=== PATIENT | male | born 1975 | race Caucasian/White ===

== ENCOUNTER 2024-07-18 06:09 | Day surgery (SDC) | payer OTHER, SELFPAY ==
--- OUTSIDE RECORDS SUMMARY | 2024-07-14 03:02 | XMS_ITS | Data Portability ---
Author Organization [place] [facility] Address [address] [place] [address] Assessment No assessment recorded. Plan of Treatment Reminders Order Date Submit Date Provider Last Modified By Organization Details Last Modified Time Details Appointments ESTABLI SHED 10 2024 08:40A M Pepe dominguez MD Not available Not available Not available Lab PSA, serum or plasma 2019 020 [email or web address] Not available 06/25/2020 10:29:06 urinaly sis, dipstic k 2020 021 [email or web address] Not available 05/27/2021 09:25:22 PSA, serum or plasma 2021 022 [email or web address] [facility], [address], [place], [address], 05/26/2022 10:24:36 urinaly sis, dipstic k 2021 022 [email or web address] [facility], [address], [place], [address], 05/26/2022 10:01:41 urinaly sis, dipstic k 2023 024 [email or web address] [facility], [address], [place], [address], 09/28/2023 09:31:48 Referral None recorde d. Procedures None recorde d. Surgeries None recorde d. Imaging None recorde d. Medication Orders Viagra 100 mg tablet [address] [facility], [address] [place] [address], [id number], 09/28/2023 09:18:46 Flomax 0.4 mg capsule [address] [facility], [address] [place] [address], [id number], 09/28/2023 09:18:27 Cialis 5 mg tablet 2019 [facility], [address] [place] [address], [id number], 06/25/2020 10:54:38 [facility] 5 mg tablet 2020 [facility] [address] [place] [address], [id number], 05/27/2021 09:47:41 tadalaf il 10 mg tablet 2021 022 [facility], [address] [place] [address], [id number], 05/26/2022 09:41:50 tamsulo sin 0.4 mg capsule [address] [facility], [address] [place] [address], [id number], 09/28/2023 09:18:27 Cialis 10 mg tablet 2023 024 [facility], [address] [place] [address], [id number], 09/28/2023 09:52:20 Viagra 100 mg tablet 2023 024 [facility], [address] [place], [address], 09/28/2023 09:58:06 Patient TargetsNo targets recorded. Patient Instructions Encounter Date Encounter Id Patient Instructions Last Modified By Organization Details Last Modified Time 06/25/2020 [id number] 1. BPH with slow stream---nocturi a X 1---VOIDING WELL ON FLOMAX---BLADDER SCAN PVR 6 CC today 06/25/20 2. ED---has good libido---sildena matt works well 3. LEFT EPIDIDYMAL CYST---NOT BOTHERED---no pain 4. PSA HX: PSA 1.3 today 06/25/2020 PSA 1.38 04/2019 PSA 0.98 2018 PLAN: 1. Continue flomax 2. Continue sildenafil prn 3. RX Cialis 5 mg daily for ED and BPH---I discussed CIalis daily may work well for both ED and BPH---hold flomax and sildenafil while trying Cialis 4. Pt has handout on Uro[employer] 5. Follow up 1 year for bladder scan PVR and Cysto 6. Check PSA in 2 years [email or web address] Not available 06/25/2020 10:55:00 05/27/2021 [id number] 1. BPH with slow stream---nocturi a X 1---not bothered---Voidi ng well on cialis 5 mg daily Bladder scan PVR 4 cc today 05/27/21 UA neg today 05/27/21 2. ED---has good libido---cialis 5 mg daily works well---good erections 3. LEFT EPIDIDYMAL CYST---NOT BOTHERED---no pain 4. PSA HX: PSA 1.4 today 05/27/2021 PSA 1.3 06/25/2020 PSA 1.38 04/2019 PSA 0.98 2018 PLAN: 1. Continue Cialis 5 mg daily for ED and BPH 2. Follow up 1 year for bladder scan PVR and possible Cysto if BPH sx worsen [email or web address] Not available 05/27/2021 09:47:49 09/28/2023 [id number] 1. BPH with slow stream---nocturi a X 1---not bothered---ciali s 10 mg daily pvr 0cc UA neg today09/28/2023 05/27/21 FROM PRIOR VISIT-- 05/26/22 (Minoo Cordova PA-C) - Sg presents for medication refill. No changes to urination habits. Still with nocturia x1. Pt reports taking tadalafil 20mg daily (shows me bottle which is indeed 20mg dosage). Per Dr Velez last note, was previously prescribed 5mg daily. Sg denies any changes to urination habits or erections; is unsure when or why this dosage changed. He also reports preferring to switch to tamsulosin when he is traveling for work and not sexually active for streches of time. UA today negative; PVR today 69ml. PSA 1.3, stable. 2. ED---has good libido---prn sildenafil 3. LEFT EPIDIDYMAL CYST---NOT BOTHERED---no pain 4. PSA HX: PSA 1.3 05/26/2023 PSA 1.4 today 05/27/2021 PSA 1.3 06/25/2020 PSA 1.38 04/2019 PSA 0.98 2018 PLAN: 1. Continue Cialis 10 mg daily for ED and BPH----can also try sildenbafil 100mg prn ----12 hrs apart 2. Follow up 1 year for bladder scan PVR and possible Cysto if BPH sx worsen 3. psa with physical dtortorelis Not available 09/28/2023 09:46:48 Reason for Referral None Reported. Results Created Date Observation Date Name Description Value Unit Range Abnormal Flag Note LastModifiedBy Organization Detail LastModifiedTime 05/27/2021 urina lysis , dipst ick Bilirubin-St atus Small Not Available [facility] [address], [place], [address], 05/27/2021 09:21:22 05/27/2021 urina lysis , dipst ick Ketones-Stat us 5 Not Available [facility] [address], [place], [address], 05/27/2021 09:21:22 06/25/2020 PSA, serum or plasm a PSA, Total 1.3 ng/ml Not Available [facility] [address], [place], [address], 06/25/2020 10:28:38 05/26/20 22 05/26/2022 PSA, serum or plasm a PSA 1.3ng/ ml 0-4.0 Not Available [facility] [address], [place], [address], 05/26/2022 10:00:46 05/26/2005/26/2022 urina lysis , dipst ick pH-Status 7.0 Not Available [facility] [address], [place], [address], 05/26/2022 10:01:23 09/28/19 24 09/28/2023 urina lysis , dipst ick Color-Status Yellow Not Available [facility] [address], [place], [address], 09/28/2023 09:31:02 09/28/1909/28/2023 urina lysis , dipst ick Clarity-Stat us Clear Not Available [facility] [address], [place], [address], 09/28/2023 09:31:02 09/28/19 24 09/28/2023 urina lysis , dipst ick Sp [place]-Stat us 1.025 Not Available [facility] [address], [place], [address], 09/28/2023 09:31:02 09/28/1909/28/2023 urina lysis , dipst ick Nitrates-Sta tus negati ve Not Available [facility] [address], [place], [address], 09/28/2023 09:31:02 09/28/19 09/28/2023 urina lysis , dipst ick Blood-Status Negati ve Not Available [facility] [address], [place], [address], 09/28/2023 09:31:02 09/28/19 24 09/28/2023 urina lysis , dipst ick Leuko-Status Negati ve Not Available [facility] [address], [place], [address], 09/28/2023 09:31:02 09/28/19 24 09/28/2023 urina lysis , dipst ick Specimen Type Voided Not Available [facility] [address], [place], [address], 09/28/2023 09:31:02 09/28/19 24 09/28/2023 urina lysis , dipst ick Performed by Raghu person RN Not Available [facility] [address], [place], [address], 09/28/2023 09:31:02 06/26/20 20 06/25/2020 bladd er scan (PROC ) No observ ation record ed. BARCODE Not Available 2019 09:35:01 05/29/20 22 05/26/2022 bladd er scan (PROC ) No observ ation record ed. BARCODE Not Available 2021 17:43:00 09/28/19 24 09/28/2023 bladd er scan (PROC ) No observ ation record ed. BARCODE Not Available 2023 14:19:00 Result Notes None recorded. Problems Name Problem SNOMED Code Status Onset Date Resolution Date Notes Provider Name and Address Organization Details Recorded Time Impotence Active 2012 N52.9 : Male erectile dysfunctio n unspecifie d Not Available [facility] 0 02:05:08 Clinical finding Active 2016 N40.1 : Benign prostatic hyperplasi a with lower urinary tract symp Not Available [facility] 0 02:05:08 Slowing of urinary stream 68018828 Active 2012 R39.12 : Poor urinary stream Not Available [facility] 0 02:05:08 Procedure on genitouri nary system Active 2012 V25.2 : ELECTIVE STERILZATI ON Not Available [facility] 0 02:05:08 Erectile dysfuncti on 469028393 Active 2022 Marilyn randall [facility] 3 17:36:24 Problem Notes None recorded. Procedures Surgical History Date Name Laterality Status Provider Name and Address Organization Details Recorded Time 11/04/19 24 Colonoscopy completed Edward hutson [facility] 03/21/2024 14:10:39 09/28/19 24 Urinalysis completed Lorena Bello [facility] 09/28/2023 09:19:37 09/28/19 24 Bladder Scan completed Juliana Lyle [facility] 09/28/2023 09:30:58 05/26/20 22 PSA RESULTS completed Blacklicktobin Singh [facility] 05/26/2022 10:24:24 05/26/20 22 Bladder Scan completed Blacklicktobin Singh [facility] 05/26/2022 10:00:26 05/27/20 21 Bladder Scan completed Pepe Velez MD [address] [place] [address], [address], [facility] 05/27/2021 09:30:57 06/25/20 20 MARKING CLERK/blood draw completed Susi Gilliland [facility] 06/25/2020 10:29:24 Imaging Results Imaging Date Name Status LastModified by Organiz ation Details LastModified Time 06/25/2020 bladder scan (PROC) completed BAR[facility] Information not available 06/26/2020 09:35:01 05/26/2022 bladder scan (PROC) completed BARCODE Information not available 05/29/2022 17:43:00 09/28/2023 bladder scan (PROC) completed BARCODE Information not available 09/28/2023 14:19:00 Procedure Notes None recorded. Medical Equipment None Reported. Allergies Allergen ID Allergen Name Allergen Category Reaction Reaction Severity Criticality Documentation Date Start Date Code Code System Note Provider Name and Address Organization Details Recorded Time [id number] 262516633 [id number] 2824e Penicilli n Not available Not available Not available Not available 01/19/20202015 43728 RxNorm React ion: Skin React ion Not Available Not Available Not Available [id number] 2824e Zithromax medicatio n Not available Not available Not available 01/19/20202014 29181 4 RxNorm Not Available Not Available Not Available Medications Name Sig Start Date Stop Date Status Note LastModified by Organization Details LastModified Time trazodone 50 mg tablet 06/25 completed Not Available Not Available Not Available tamsulosin 0.4 mg capsule Take 1 capsule every day by oral route as directed . 09/28 completed Not Available Not Available Not Available trazodone 100 mg tablet active Not Available Not Available Not Available Viagra 100 mg tablet Take 1 tablet as needed by oral route. 2023 active Not Available Not Available Not Avai lable tadalafil 20 mg tablet TAKE 1 TAB BY MOUTH DAILY NEEDED 30 MINUTES BEFORE SEXUAL ACTIVITY . NOT TO EXCEED 1 IN 36 HRS 09/28 completed Not Available Not Available Not Available Cialis 5 mg tablet Take 1 tablet every day by oral route. 2020 active Not Available Not Available Not Avai lable Cialis 10 mg tablet Take 1 tablet every day by oral route. 2023 active Not Available Not Available Not Avai lable Vitals Date Recorded Body height Body mass index (BMI) Body weight Provider Name and Address Organization Details Last Updated DateTime 05/26/2022 193.04 cm 25.6 kg/m2 70724.4 g Tyler Bruner [facility] 05/26/2022 09:28:07 Date Recorded Body height Body mass index (BMI) Body weight Provider Name and Address Organization Details Last Updated DateTime 06/25/2020 193.04 cm 25.6 kg/m2 49931.4 g Susi Gilliland [facility] 06/25/2020 10:10:08 Date Recorded Body height Body mass index (BMI) Body weight Provider Name and Address Organization Details Last Updated DateTime 05/27/2021 193.04 cm 25.6 kg/m2 28515.4 g Tisha Jerez [facility] 05/27/2021 09:20:28 Social History Question Answer Notes LastModified by Organizat ion Details LastModified Time Tobacco Smoking Status [facility]2020 10:11:08 What Is Your Level Of Alcohol Consumption? Occasional Information not available 03/21/2024 What Was The Date Of Your Most Recent Tobacco Screening? 09/28/2023 Information not available 03/21/2024 Have You Ever Been Counseled For Unhealthy Alcohol Use? No Information not available 03/21/2024 Has Tobacco Cessation Counseling Been Provided? No Information not available 03/21/2024 Do You Or Have You Ever Used Any Other Forms Of Tobacco Or Nicotine? No Information not available 03/21/2024 How Many Days In The Past Year Have You Consumed 5 Or More Drinks? 0 Information not available 03/21/2024 Sex: Male Functional Status None recorded. Mental Status None recorded. Family History Nothing Reported. Medical History Condition Response Other N High Blood Pressure N Kidney Stones N Lung Disease N Depression N GERD/Acid Reflux N Sexually Transmitted Infection N Cancer N High Cholesterol N Diabetes N Bleeding Disorder N Heart Disease N Immunizations Vaccine Type Date Status Note Provider Nam e and Address Organization Details Recorded Time COVID-19, mRNA, LNP-S, PF, 100 mcg/0.5mL dose or 50 mcg/0.25mL dose 1 [facility]2024 14:11:03 COVID-19, mRNA, LNP-S, PF, 100 mcg/0.5mL dose or 50 mcg/0.25mL dose 1 [facility] 03/21/2024 14:11:03 COVID-19, mRNA, LNP-S, PF, 100 mcg/0.5mL dose or 50 mcg/0.25mL dose 1 [facility] 03/21/2024 14:11:03 Tdap 1 completed Mago Piper null, [employer] 07/21/2023 13:19:01 Tdap 7 completed Edward hutson null, [employer] 03/21/2024 14:11:03 Influenza, split virus, trivalent, PF 9 completed Mago Piper null, [employer] 07/21/2023 13:19:01 Influenza, split virus, trivalent, PF 0 completed Mago Piper null, [employer] 07/21/2023 13:19:02 Influenza, split virus, quadrivalent, PF 4 completed Edward hutson null, [employer] 03/21/2024 14:11:03 Influenza, split virus, quadrivalent, PF 1 completed Edward hutson null, [employer] 03/21/2024 14:11:03 Influenza, split virus, quadrivalent, preservative 2 completed Edward hutson null, [employer] [facility] 03/21/2024 14:11:03 Past Encounters Encounter ID Performer Location Encounter Start Date Encounter Closed Date Diagnosis/Indication Diagnosis SNOMED-CT Code Diagnosis ICD10 Code [id number] MD SONIA [facility] [address] [place] [address] 06/25/2020 10:00:20 06/25/2020 14:59:04 Benign prostatic hyperplasia 358197484 N40.1 Primary er ectile dysfunction 536309067 N52.9 [id number] MD SONIA [facility] [address] [place] [address] 05/27/2021 09:07:22 05/29/2021 13:40:38 Benign prostatic hyperplasia 240969091 N40.1 Primary er ectile dysfunction 932482401 N52.9 Slowing of urinary stream 78131133 R39.12 Impotence 476400717 F52. 21 [id number] STERLING CORDOVA PA-C [facility] [address] [place] [address] 05/26/2022 08:57:10 05/28/2022 10:48:42 Benign prostatic hyperplasia 143707516 N40.1 Primary er ectile dysfunction 170742352 N52.9 Slowing of urinary stream 63486337 R39.12 Impotence 296325796 F52. 21 Screening for malignant neoplasm of prostate 265194500 Z12.5 [id number] Pepe Velez MD [facility] [address] [place] [address] 09/28/2023 09:06:41 09/29/2023 14:24:20 Slowing of urinary stream 08499857 R39.12 Health Concerns Section Related Observation LastModified by Organization Detai ls LastModified Time None Recorded Concern Status LastModified by Organization Details LastModified Time None Recorded Advance Directives Directive None Recorded Payers Encounter Date Sequence Insurance Name Policy Number Policy Weaver Covered Member ID Weaver Member ID Guarantor Name 05/27/2021 1 [employer] [id number] Sherman Bee [id number] Sherman Bee 05/26/2022 1 [employer] [id number] Bin Rohit [id number] Sherman Bee 09/28/[address] [facility] [id number] Sherman Bee [id number] Sherman Bee Notes Date Note Type Note Provider Name and Address Organization Details Recorded Time 06/25/2020 text/html Pt here for foll ow up BPH, ED, and left epididymal cyst---here with PSA voiding well on flomax nocturia X 1---not bothered ED---sildenafil works well has good libido previously tried Cialis 5 mg daily for ED and BPH---pt states he voids better on flomax than he did on Cialis left epididymal cyst---no pain---pt not bothered no family hx prostate cancer Note from [employer]: 04/25/1950SJKBBBQAJM4. BPH/Slow Stream---VOIDING WELL ON FLOMAX---BLADDER SCAN PVR 0CC 2. ED-- RX SILDENAFIL 3. LEFT EPIDIDYMAL CYST---NOT BOTHERED 4. PSA 1.38 04/2019 PSA 0.98 2018 PLAN1. FOLLOW UP 1 YEAR 2. EPIDIDYMAL CYST - NO PAIN -- FOLLOW 3. CONTINUE RX SILDENAFIL 4. CONTINUE FLOMAX---HAND OUT UROLIFT Pepe Velez MD [address] [place] [address],[address] [place] [address], [phone], [facility] 06/25/2020 10:55:19 05/27/2021 text/html Pt here for foll ow up BPH, ED, and left epididymal cyst Voiding well on cialis 5 mg daily---pt happy with resultsflomax helped in pastBladder scan PVR 4 cc today 05/27/21UA neg today 05/27/21 nocturia X 1---not bothered ED---sildenafil worked in past---now on cialis 5 mg dialy with good response---good erections has good libido left epididymal cyst---no pain---pt not bothered no family hx prostate cancer Pepe Velez MD [address] [place] [address],[place] [address], [place], [address], [facility] 05/27/2021 09:47:56 05/26/2022 text/html 05/26/22 (Minoo Cordova PA-C) - Sg presents for medication refill. No changes to urination habits. Still with nocturia x1. Pt reports taking tadalafil 20mg daily (shows me bottle which is indeed 20mg dosage). Per Dr Velez last note, was previously prescribed 5mg daily. Sg denies any changes to urination habits or erections; is unsure when or why this dosage changed. He also reports preferring to switch to tamsulosin when he is traveling for work and not sexually active for streches of time. UA today negative; PVR today 69ml. PSA 1.3, stable. Dr. Velez note (05/27/21) Pt here for follow up BPH, ED, and left epididymal cyst Voiding well on cialis 5 mg daily---pt happy with resultsflomax helped in pastBladder scan PVR 4 cc today 05/27/21UA neg today 05/27/21 nocturia X 1---not botheredED---silgab rene worked in past---now on cialis 5 mg dialy with good response---good erectionshas good libidoleft epididymal cyst---no pain---pt not botheredno family hx prostate cancer STERLING CORDOVA PA-C [address] [place] [address], [phone], [facility] 05/26/2022 16:51:07 09/28/2023 text/html follow up appt Peperaza gilliam MD [address] [place] [address], [place], [address], [facility] 09/28/2023 18:50:09
[2024-07-18] VITALS (22 sets, daily range): BP systolic 85–148; BP diastolic 65–90; PULSE 54–72; RESP 14–18; TEMP 36.1–36.9; O2SAT 95–100; BMI 28.0
[2024-07-18] MEDS: LACTATED RINGERS 1000 ML 1,000 ML 100 ML IV (05:55)
[2024-07-18] MEDS: MIDAZOLAM HCL 1 MG/ML inj IVP (07:00)
[2024-07-18] MEDS: ACETAMINOPHEN 500 MG TABLET 1000 MG PO (07:04)
[2024-07-18] MEDS: SODIUM CHLORIDE 0.9 % (FLUSH) 10 ML SYRINGE IVF (07:04)
[2024-07-18] MEDS: OXYCODONE (CR) 10 MG TAB.ER.12H PO (07:04)
--- NOTE | 2024-07-18 07:05 | W.PM.H&PU ---
History & Physical Update History & Physical Update H&P Reviewed and patient assessed: No changes noted
[2024-07-18] MEDS: fentaNYL 100 MCG/2 ML inj IVP (07:10)
--- NOTE | 2024-07-18 07:15 | CRLHL7_ITS ---
For Patients: As a result of the Cures Act, medical imaging exams and procedure reports are released immediately into your electronic medical record. You may view this report before your referring provider. If you have questions, please contact your health care provider. Indication: Hip replacement surgery Technique: AP hip fluoroscopic image. Fluoroscopy time 34.5 seconds. Findings/Impression: Hardware from a left total hip arthroplasty is in satisfactory position. Dictated by Kb Betancur MD @ 07/18/2024 10:50:47 AM (Electronically Signed)
--- NOTE | 2024-07-18 07:24 | SUR.PREOP ---
TIME?OUT:?0710 PT/RN/MDA?VERIFICATION?OF?SURGICAL?SITE,?PROCEDURE,?AND?CONSENT OBTAINED?PRIOR?TO?INVASIVE?PROCEDURE.
[2024-07-18] MEDS: TRANEXAMIC ACID 100 MG/ML INJ 1000 MG IV (07:29)
[2024-07-18] MEDS: CEFAZOLIN 2 GM in 0.9 % SODIUM CHLORIDE Mini-bag 100 ML IVPB (07:34)
--- NOTE | 2024-07-18 08:02 | P.NB_ITS ---
Nerve Block Nerve Block Time Seen by Provider: 07:15 Date Seen: 07/18/24 Type of block requested by surgeon for post-operative analgesia: JEANNE/LFCN Side: left Time out performed: Yes Verification of patient name: Yes Verification of date of : Yes Site marking: site marked Name of person performing procedure: Hardy Continuous monitoring Was continuous monitoring of O2 sat, B/P, cardiac catheterization technologist, recorded every 15 minutes?: Yes Procedure Checklist: sterile prep, needles and gloves Ultrasound guided. Images saved: Yes Medications given in 5ml increments after negative aspiration: Marcaine %: 0.5 mL: 30 Needle gauge: 20 Precedex (mcg): 25 Patient tolerated procedure well: Yes Additional comments: Needle noted below psoas tendon needle noted adjacent to LFCN Block Charges Block Charge (with Pro Fee): Other Periph Nerve Block Use of Ultrasound Machine for Block: Yes- US Guidance/pain block
--- NOTE | 2024-07-18 08:02 | W.ANESCHARGE ---
Anesthesia Charges Start Date/Time Anesthesia Start Date: 07/18/24 Anesthesia Start Time: 07:18 Stop Date/Time Anesthesia Stop Date: 07/18/24 Anesthesia Stop Time: 10:15
--- NOTE | 2024-07-18 08:33 | CRLHL7_ITS ---
For Patients: As a result of the Cures Act, medical imaging exams and procedure reports are released immediately into your electronic medical record. You may view this report before your referring provider. If you have questions, please contact your health care provider. Indication: Post op left ROMAINE Technique: AP hip centered pelvis and lateral view left hip Findings/Impression: Hardware from a left total hip arthroplasty is in satisfactory position. Bone alignment is normal. No sign of acute fracture. Postop changes are within normal limits. Dictated by Kb Betancur MD @ 07/18/2024 2:56:08 PM (Electronically Signed)
--- NOTE | 2024-07-18 09:27 | P.ORPRC_ITS ---
Procedure Note Date of procedure: 07/18/24 Procedure: PREOPERATIVE DIAGNOSIS: 1. Left hip osteoarthritis, severe, primary POSTOPERATIVE DIAGNOSIS: 1. Left hip osteoarthritis, severe, primary PROCEDURE: 1. Left total hip arthroplasty-anterior approach 2. 37800 - intraoperative fluoroscopy up to 1 hour. SURGEON: Josep Valdez MD. WORD PROCESSING MACHINE OPERATOR: Duc Lai PA-C; MASOOD Marin - Of note, a skilled clerical dentist assistant was critical for this case to aid in patient positioning, tissue retraction, limb manipulation/positioning, dislocation/relocation, patient safety, and closure. ANESTHESIA: General endotracheal anesthetic EBL: 300ml IMPLANTS: DePuy J&J uncemented total hip Yeaddiss cup size 56, hole eliminator, +4 neutral liner Actis stem, high offset, size 8 +1.5 mm ceramic 36 mm head. COMPLICATIONS: None evident INDICATIONS: The patient is a pleasant 49-year-old male who has experienced severe left hip pain and difficulty bearing weight. Workup included x-rays which revealed severe osteoarthrosis in the hip. Given the deformity, the dysfunction, and the pain, as well as the failure of nonoperative management, recommendation was made for surgery. FINDINGS: Full-thickness chondral loss diffusely throughout the femoral head and acetabulum. Large osteophytes around the perimeter of the femoral head/neck junction and acetabulum. Moderate effusion upon entering the joint. DESCRIPTION OF PROCEDURE: Following a thorough discussion of risks, benefits, and alternatives consent was obtained and the left hip was marked. The patient was brought to the operating room and placed supine on the operating table. Induction of anesthesia was undertaken. 2 g IV Ancef and 1 g tranexamic acid was administered within 1 hr of incision preoperatively. Proper time-out was performed identifying proper patient, site, procedure. The operative extremity was prepped and draped in the appropriate sterile fashion using ChloraPrep after the patient was positioned on the [place] table with head in neutral alignment and all bony prominences well padded. C-arm fluoroscopic imaging was utilized to confirm proper pelvis rotation and position, and to get true AP films of both the contralateral left, and the affected left hip. This is for comparison. A longitudinal incision was made starting approximately 1 cm distal to the ASIS, and 3-4 cm lateral. The incision was extended distally aiming toward the lateral border the patella. Sharp incision through skin and bovie cautery through the subcutaneous tissue allowed identification of the TFL fascia. This was sharply divided, and the fascia bluntly released from the muscle fibers as we dissected medial. Upon coming to the medial border, we were able to retract the TFL laterally, and penetrated the deeper fascia and identify the crossing circumflex vessels. These were ligated/cauterized. The rectus was elevated from the capsule, and retractors placed laterally and medially along the femoral neck to help with visualization of the capsule. We then performed an inverted T capsulotomy. The capsule was tagged for later repair. Retractors were placed inside the capsule. The femoral neck was visualized after releasing medially down to the lesser trochanter, along the saddle laterally, and up onto the acetabulum. The femoral neck cut was made in line with our preoperative templating. The head was removed in a single piece, and sized. We turned our attention to acetabular preparation. Initially, the labrum was resected from around the perimeter, the pulvinar was excised, allowing us to visualize the false wall. We started the reaming with a 43 mm reamer. This was medialized down to the true wall. We then enlarged our reamers sequentially up to one size less than the selected cup size. We trialed at the same size and found it to have an excellent fit. The selected cup was then opened, inserted, and impacted in line with the goal of 40-45? of abduction, and 20-25? of anteversion. This was confirmed on C-arm fluoroscopic imaging to be in the brynn ropriate/goal position. Once the cup was placed we placed a hole eliminator and a liner consistent with preop planning. Attention was turned to the femoral preparation. The limb was extended, externa lly rotated, and adducted. The posteromedial capsule was released, as retractors were placed allowing excellent access to the proximal femur. Initially a card boxer was followed by canal finder followed by various broaches. We broached sequentially up to size noted above, found it to have excellent rotational control, and trialing various heads and necks, revealed that appropriate neck offset, and the above noted head size provided the greatest stability, and congregation of length, and offset. C-arm fluoroscopic imaging confirmed position of the stem, as well as leg lengths, which were comp ared with the pre procedure all fluoroscopic images. Trial implants were removed, the real femoral stem inserted, as was the ceramic head. After reducing, the leg was placed through range of motion and stability was confirmed anterior, posterior, and lateral. A 3 min Betadine soak was then performed, and thorough irrigation with normal saline followed. Closure of the capsule was performed with #1 PDS. Bleeding was confirmed to be controlled at this stage, and the TFL fascia was closed with #0 strata fix. Subcutaneous, and subcuticular closure was performed with 2-0 Vicryl and 4-0 Monocryl, respectively. Dressings were applied, and the patient was awoken from anesthesia and transferred the PACU in stable condition. A skilled clerical dentist assistant was critical for this case to aid in patient positioning, tissue retraction, proximal femur exposure, limb manipulation/positioning, dislocation/relocation, patient safety, and closure. PLAN: 1. Weight bear as tolerated operative extremity. 2. 23 hr perioperative antibiotics. 3. Ice. 4. PT/OT consults for ambulation assistance/mobility education. 5. Social work consult for discharge planning. 6. DVT prophylaxis with at SCDs and Xarelto x5 days followed by aspirin for a total of 1 month..
--- NOTE | 2024-07-18 10:17 | W.ANESCHARGE ---
Anesthesia Charges Start Date/Time Anesthesia Start Date: 07/18/24 Anesthesia Start Time: 07:18 Stop Date/Time Anesthesia Stop Date: 07/18/24 Anesthesia Stop Time: 10:15
[2024-07-18] MEDS: HYDROmorphone 0.5 mg/0.5 ml inj IVP ×4 (10:23→11:50)
[2024-07-18] MEDS: fentaNYL 100 MCG/2 ML inj 50 MCG IVP ×4 (10:27→11:41)
[2024-07-18] MEDS: 0.9 % SODIUM CHLORIDE 500 ML 500 ML 100 ML IV (10:42)
[2024-07-18] MEDS: hydrOXYzine pamoate 25 MG CAPSULE PO (10:55)
[2024-07-18] MEDS: MEPERIDINE 25 MG/ML INJ 12.5 MG IVP (11:15)
[2024-07-18] MEDS: ACETAMINOPHEN 325 MG TABLET PO (11:30)
[2024-07-18] MEDS: OXYCODONE 5 MG TABLET PO (11:30)
== END 2024-07-18 14:31 | disposition home or self-care (01) ==
PROVIDERS: Visit Provider Orthopaedic Surgery Sports Medicine
PROC: (CPT 27130; principal; 2024-07-18 07:15)
DX: M16.12 Unilateral primary osteoarthritis, left hip (principal); G89.18 Other acute postprocedural pain
CPT/HCPCS: 27130; 01214; 64450; 73501; 76000; 76942; 86850; 86900; 86901; 97110; 97116; 97161; 97165; 97535; A9270; C1776; J0665; J0690; J1100; J1171; J2175; J2250; J2405; J2704; J2710; J3010; J3490; J7030; J7120

== ENCOUNTER 2024-09-08 13:00 | Outpatient (RCR) | payer OTHER, SELFPAY ==
--- OUTSIDE RECORDS SUMMARY | 2024-07-28 08:48 | XMS_ITS | Patient Health Record ---
Author Organization [facility] Address [address] [place] [address] [place] [address] Care Team Providers Care Cadmium Burner Name Role Phone GALO PARIS MD Primary Care Provider Unavailab le Allergies Allergen (clinical drug ingredient) Drug/Non Drug Allergy documented on EMR Reaction Allergy Type Onset Date Status amoxicillin Amoxicillin rash Drug Allergy Act kat ciprofloxacin Cipro rash Drug Allergy Act kat Reason For Referral No Information Medications Medication SIG (Take, Route, Frequency, Duration) Notes Start Date End Date Status Tamsulosin HCl 0.4 MG Orally Active oxyCODONE HCl 5 MG 1-2 capsules Orally every 4 hrs Not-Taking Tadalafil 5 MG 1 tablet as needed O rally Once a day Active Social History Tobacco Use: Social History Observation Description Date Details (start date - stop date) Never Smoker NA - NA Tobacco Use/Smoking Question Answer Notes Are you a nonsmoker Problems Problem Type SNOMED Code ICD Code Onset Dates Problem Status W/U Status Risk Notes Problem Incisional hernia (049123668) Incisional hernia without obstruction or gangrene (K43.2) Active confirmed Problem Postoperative follow-up visit (307744670) Post op follow-up exam (Z48.89) Active confirmed Plan Of Treatment No Information Insurance Providers Payer Name Payer Address Payer Phone Subscriber Number Group Number Insured Name Patient Relationship to Insured Coverage Start Date Coverage End Date [facility] [address] [place] [address] [id number] GENNARO MULLER Self - patient is the insured Medical (General) History Medical History History ICD Code chronic rhinitis closed fracture of right 5th metacarpal erectile dysfunction benign prostatic hyperplasia umbilical hernia without obstruction and without gangrene acute meniscal tear of right knee appendicitis Surgical History Surgery Date(Month/Year) left ankle surgery appendectomy, umbilical hernia repair right knee arthroscopy
--- OUTSIDE RECORDS SUMMARY | 2024-08-04 08:41 | XMS_ITS | Patient Health Record ---
Author Organization [facility] Address [address] [place] [address] [place] [address] Care Team Providers Care Provider Relations Rep Name Role Phone GALO PARIS MD Primary [...] W/U Status Risk Notes Problem Incisional hernia (861437838) Incisional hernia without obstruction or gangrene (K43.2) Active confirmed Problem Postoperative follow-up visit (625848207) Post op follow-up exam (Z48.89) Active confirmed Plan Of Treatment No Information Insurance Providers Payer Name Payer Address Payer Phone Subscriber Number Group Number Insured Name Patient Relationship to Insured Coverage Start Date Coverage End Date [facility] [address] [place] [address] [id number] GENNARO MULLER Self - patient is the [...]
--- OUTSIDE RECORDS SUMMARY | 2024-08-04 08:41 | XMS_ITS | Clinical Summary ---
Author Organization [facility] Address [address] [place] [id number] Care Team Providers Care Child Protective Investigator Name Role Phone Kota Whitley MD Primary Care Provider [phone] Allergies Active Allergy Reactions Criticality Noted Date Comments Amoxicillin Rash 12/19/2015 Azithromycin 01/17/2015 Ciprofloxacin Rash High 12/19/2015 Penicillins Rash Medium 04/24/2016 Medications Tadalafil 5 mg Oral Tab Take 1 Tab by mouth Once Daily. 30 Tab 02/28/2016 Active sildenafiL (VIAGRA) 100 mg oral tablet Viagra 100 mg tablet Take 1 tablet as needed by oral route. Active traZODone (DESYREL) 100 mg oral tabletIndication s:Insomnia, unspecified type Take 1 tablet (100 mg) by mouth at bedtime as needed for sleep. 30 tablet 3 10/15/2023 Active Active Problems Problem Noted Date Diagnosed Date Encounter for other specified surgical aftercare 07/05/2024 Incisional hernia 07/05/2024 Osteoarthritis 07/05/2024 Overview (07/05/2024): Hip and knee pain; getting worse with age Benign prostatic hyperplasia , unspecified whether lower urinary tract symptoms present 04/05/2019 Insomnia, unspecified type 04/05/2019 Erectile dysfunction 07/04/2014 Slowing of urinary stream 08/08/2012 Overview (07/05/2024): R39.12 : Poor urinary stream Closed fracture of metacarpal bone 09/11/2011 Chronic rhinitis 11/13/2006 Resolved Problems Problem Noted Date Diagnosed Date Resolved Date Appendicitis 04/01/2016 04/05/2019 Acute meniscal tear of right knee 03/24/2016 04/05/2019 Mild medial compartment OA per XR 12/19/2015 04/05/2019 Encounters Date Type Department Care Team Description 07/05/2024 8:30 AM SUPERVISOR PAYROLL Office Visit [facility] [address] [address] [place] [address] Kota Whitley MD Preoperative examination (Primary Dx) 07/05/2024 Travel from Last 3 Months Immunizations Name Administration Dates Next Due Influenza recombinant (FluBl ok Quadrivalent PF) 10/14/2018,07/04/2014,04/29/2010 Influenza split virus (Fluzo ne Quadrivalent PF) 07/10/2021,07/04/2014 Influenza split virus (Fluzo ne Trivalent PF) 04/29/2010 Influenza split virus quadrivalent 06/29/2012 Influenza split virus trivalent 04/26/2009 SPIKEVAX (Moderna) 12+ Yrs M onovalent COVID Vaccine (psychiatric registered nurse) 07/10/2021,12/10/2020,11/12/2020 Tdap 10/15/2023(Deferred: Out of Stock - ),10/20/2010,07/22/2007 Family History Medical History Relation Comments No Known Problems Brother Ovarian Cancer Mother at 50 No Known Problems Paternal Grandfather No Known Problems Paternal Grandmother Relation Status Comments Brother Maternal Grandfather Maternal Grandmother Mother Paternal Grandfather Paternal Grandmother Sister Alive Social History Tobacco Use Types Packs/Day Years Used Date Smoking Tobacco: Never Passive Smoke Exposure: Never Smokeless Tobacco: Never Tobacco Cessation:Counseling Given: Not Answered Alcohol Use Standard Drinks/Week Comments Yes 0 (1 standard drink = 0.6 oz pur e alcohol) PHQ-2 Answer Date Recorded PHQ2 Total 0 07/05/2024 Sex and Gender Information Value Date Recorded Sex Assigned at Male 11/22/2022 9:36 AM CDT Legal Sex Male 1:38 PM CDT Gender Identity Male 11/01/2020 8:11 PM CDT Sexual Orientation Straight 11/01/2020 8: 11 PM CDT Last Filed Vital Signs Vital Sign Reading Time Taken Comments Blood Pressure 124/80 07/05/2024 8:24 AM SUPERVISOR PAYROLL Pulse 59 07/05/2024 8:24 AM SUPERVISOR PAYROLL Temperature 36.5 C (97.7 F) 07/05/2024 8:24 AM SUPERVISOR PAYROLL Respiratory Rate 16 07/05/2024 8:24 AM SUPERVISOR PAYROLL Oxygen Saturation 97% 07/05/2024 8:24 AM SUPERVISOR PAYROLL Inhaled Oxygen Concentration - - Weight 96.6 kg (213 lb) 07/05/2024 8:24 AM SUPERVISOR PAYROLL Height 185.4 cm (6' 1) 07/05/2024 8:24 AM SUPERVISOR PAYROLL Body Mass Index 28.1 07/05/2024 8:24 AM SUPERVISOR PAYROLL Plan of Treatment Health Maintenance Due Date Last Done Comments Adult Tetanus Booster 10/20/2020 10/20/2010, 007 COVID-19 Vaccine ( season) 2024 07/10/2021, 12/10/2020, 11/12/2020 Anxiety Follow-Up (ARNIE-7) 10/14/2024 10/15/2023 Depression Follow-Up (PHQ-9) 10/14/2024 10/15/2023 Yearly Review of HCD 10/14/2024 10/15/2023, 04/05/2019, 10/14/2018, Additional history exists Influenza Vaccine (#1) 2025 , 10/14/2018, 07/04/2014, Additional history exists Postponed from 04/03/2024 (Patient refused) Zoster Vaccine (1 of 2) 07/05/2025 Post poned from 2024 (Unavailable) Diabetes Screening 07/05/2027 07/05/2024, 0 10/15/2023, 03/31/2016, Additional history exists Lipid Screening 10/14/2028 10/15/2023 Colonoscopy 11/03/2033 11/04/2023 (Prev iously completed) RSV Vaccines (1 - 1-dose 75+ series) 2049 Hepatitis C Screening Completed 10/15/2023 Pneumococcal <65 Aged Out No longer e ligible based on patient's age to complete this topic Procedures Procedure Name Priority Date/Time Associated Diagnosis Comments CBC (HGB,HCT,WBC,RBC,P LATELET) OP Routine 07/05/2024 9:02 AM SUPERVISOR PAYROLL Preoperative examination BASIC METAB PROFILE OP Routine 07/05/2024 9:02 AM SUPERVISOR PAYROLL Preoperative examination HCV ANTIBODY ([facility]) Routine 10/15/2023 8:50 AM CDT Need for hepatitis C screening test LIPID PROFILE CASCADE OP Routine 10/15/2023 8:50 AM CDT Screening for hyperlipidemia from Last 3 Months or Most Recently Relevant to Health Maintenance Results * BASIC METAB PROFILE OP (07/05/2024 9:02 AM SUPERVISOR PAYROLL) SODIUM OP 138 136 - 145 mmol/L 07/05/2024 9:43 AM [facility] POTASSIUM OP 4.5 3.5 - 5.1 mmol/L 07/05/2024 9:43 AM [facility] CHLORIDE OP 103 98 - 107 mmol/L 07/05/2024 9:43 AM [facility] CARBON DIOXIDE OP 27 21 - 32 mmol/L 07/05/2024 9:43 AM [facility] BUN (UREA NITRO) OP 18 7 - 18 mg/dL 07/05/2024 9:43 AM [facility] CREATININE OP 1.03 0.80 - 1.30 mg/dL 07/05/2024 9:43 AM [facility] EST GFR (CKD-EPI) OP >60 >60 mL/min/1.7 3m2 07/05/2024 9:43 AM [facility] Comment:Calculation based on the Chronic Kidney Disease Epidemiology Collaboration (CKD-EPI) equation refit without adjustment for race. GLUCOSE OP 98 70 - 110 mg/dL 07/05/2024 9:43 AM [facility] CALCIUM, SERUM OP 8.7 8.5 - 10.1 mg/dL 07/05/2024 9:43 AM [facility] ANION GAP OP 8.0 0.0 - 15.0 mmol/L 07/05/2024 9:43 AM [facility] Blood Venipuncture / Unknown 07/05/2024 9:02 AM SUPERVISOR PAYROLL 07/05/2024 9:02 AM SUPERVISOR PAYROLL Kota Whitley MD CHEMISTRY ORDERABLE Final Resul t [facility] [address] [place] [address], * CBC (HGB,HCT,WBC,RBC,PLATELET) OP (07/05/2024 9:02 AM SUPERVISOR PAYROLL) WBC OP 5.2 4.3 - 10.8 K/UL 07/05/2024 9:37 AM [facility] RBC OP 5.40 4.60 - 6.20 M/UL 07/05/2024 9:37 AM [facility] HEMOGLOBIN OP 16.1 14.0 - 18.0 gm/dL 07/05/2024 9:37 AM [facility] HEMATOCRIT OP 46.0 40.0 - 54.0 % 07/05/2024 9:37 AM [facility] MCV OP 85 80 - 100 fL 07/05/2024 9:37 AM [facility] MCH OP 29.8 27.0 - 33.0 pg 07/05/2024 9:37 AM [facility] MCHC OP 35.0 33.0 - 36.0 gm/dL 07/05/2024 9:37 AM [facility] RDW OP 11.9 11.5 - 14.5 % 07/05/2024 9:37 AM [facility] PLATELET COUNT OP 179 150 - 400 K/UL 07/05/2024 9:37 AM [facility] MPV OP 10.4 6.5 - 12.0 fL 07/05/2024 9:37 AM [facility] Blood Venipuncture / Unknown 07/05/2024 9:02 AM SUPERVISOR PAYROLL 07/05/2024 9:02 AM SUPERVISOR PAYROLL us Kota Whitley MD HEMATOLOGY ORDERABLE Final Resu lt [facility] [address] [place] [address], * HCV ANTIBODY ([facility]) (10/15/2023 8:50 AM CDT) Hepatitis C Virus Antibody ([facility]) Non Reactive Non Reactive 10/17/2023 5:10 AM CDT [facility] Comment: HCV antibody alone does not differentiate between previously resolved infection and active infection. Equivocal and Reactive HCV antibody results should be followed up with an HCV RNA test to support the diagnosis of active HCV infection. Blood Venipuncture / Unknown 10/15/2023 8:50 AM CDT 10/15/2023 8:50 AM CDT Narrative [facility] - 10/17/2023 5:10 AM CDT Performed at: 01 - [address] [id number] [employer]: Nicolas Tafoya MD, Phone: [phone] us Kota Whitley MD [facility] ORDERABLES Final Result [facility] [address] [place] [address] * LIPID PROFILE CASCADE OP (10/15/2023 8:50 AM CDT) Cholesterol OP 137 <200 mg/dL 10/15/2023 9:29 AM CDT [facility] Triglycerides OP 36 <150 mg/dL 10/15/19 9:29 AM CDT [facility] LDL Cholesterol, Calc OP 70 <100 mg/dL 10/15/2023 9:29 AM CDT [facility] HDL Cholesterol OP 60 >40 mg/dL 2023 9:29 AM CDT [facility] Cholesterol/HDL Ratio OP 2.3 0.0 - 4.9 10/15/2023 9:29 AM CDT [facility] Specimen Type 10/15/2023 9:29 AM CDT [facility] Blood Venipuncture / Unknown 10/15/2023 8:50 AM CDT 10/15/2023 8:50 AM CDT Narrative [facility] - 10/15/2023 9:29 AM CDT LDL CHOLESTEROL REFERENCE RANGES: (FOR PATIENTS W/O HEART DISEASE) <100 mg/dL = Optimal 100-129 mg/dL = Near/Above Optimal 130-159 mg/dL = Borderline High 160-189 mg/dL = High >/= 190 mg/dL = Very High us Kota Whitley MD CHEMISTRY ORDERABLE Final Resul t [facility] [address] [address], from Last 3 Months or Most Recently Relevant to Health Maintenance Insurance [facility] Care Teams Child Protective Investigator Relationship Specialty [place] [address] [place] [address] PCP - General Internal Medicine 10/15/23
--- OUTSIDE RECORDS SUMMARY | 2024-08-04 08:42 | XMS_ITS | Clinical Summary ---
Author Organization [facility] Address [place], [place] [address] Care Team Providers Care Medical Office Professional Instructor Name Role Phone Unavailable Primary Care Provider Unavailabl e Allergies Active Allergy Reactions Criticality Noted Date Comments Amoxicillin Rash 10/25/2010 Ciprofloxacin Rash High 09/09/2007 Medications MULTIVITAMIN TAB take 1 tablet by oral route once daily with food 0 7 Active omega-3 fatty acids-vitamin E (FISH OIL) 1,000 mg Cap Take by mouth once daily. 0 2 Active tamsulosin (FLOMAX) 0.4 mg capsule Take 1 capsule by mouth once daily after a meal. 90 capsule 3 4 Active tadalafil (CIALIS) 5 mg tablet One oral every other day alternating with Flomax. 0 4 Active Active Problems Problem Noted Date Diagnosed Date Erectile dysfunction 07/04/2014 BPH (benign prostatic hyperplasia) 07/04/2014 Closed fracture of right 5th metacarpal 09/11/19 12 Chronic rhinitis 11/13/2006 Immunizations Name Administration Dates Next Due Influenza, IIV3 (Age >=3 years) 06/29/2012,04/26 Influenza, IIV4 07/04/2014 Tdap 07/22/2007 07/22/2017 Family History Medical History Relation Name Comments Allergies Mother Cancer Mother ovarian Cancer-colon Neg. 1 Cancer-prostate Neg. 2 Heart Disease Neg. 3 Diabetes Neg. 4 Relation Name Status Comments Mother Neg. 1 Neg. 2 Neg. 3 Neg. 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 Not on file Not on file Obstetrics History Last Filed Vital Signs Vital Sign Reading Time Taken Comments Blood Pressure 127/77 03/13/2015 10:44 AM CDT Pulse 59 03/13/2015 10:44 AM CDT Temperature 36.6 C (97.9 F) 07/17/2014 3:12 PM RADIOGRAPHIC TECHNOLOGIST Respiratory Rate 14 02/10/2013 7:53 AM CDT Oxygen Saturation 96% 03/13/2015 10:44 AM CDT Inhaled Oxygen Concentration - - Weight 93.2 kg (205 lb 6 oz) 03/13/2015 10:44 AM CDT Height 190 cm (6' 2.8) 03/13/2015 10:44 AM CDT Body Mass Index 25.81 03/13/2015 10:44 AM CDT Plan of Treatment Health Maintenance Due Date Last Done Comments Depression screening for age 12+ 1986 HIV for age 15-65 1989 BMI (ht and wt on same day) for age 18+ 1992 Hepatitis C screening for age 18-79 1992 Tetanus booster 07/22/2017 07/22/2007 Colonoscopy through age 75 2019 Lipids for age 45-75 07/11/2019 07/11/2014, 08/09/19 08 COVID-19 vaccine series ( - 2023-25 season) 2024 Influenza for age 50-64 2024 07/04/20 14, 06/29/2012, 04/26/2009 Pneumococcal series for age 50+ (1 of 1 - PCV) 2024 Zoster (shingles) series for age 50+ (1 of 2) 2024 Tdap Completed 07/22/2007 Procedures Procedure Name Priority Date/Time Associated Diagnosis Comments LIPID PANEL W REFLEX MEASURED LDL Routine 07/11/2014 8:45 AM RADIOGRAPHIC TECHNOLOGIST Lipid screening from Last 3 Months or Most Recently Relevant to Health Maintenance Results * LIPID PANEL W REFLEX MEASURED LDL (07/11/2014 8:45 AM RADIOGRAPHIC TECHNOLOGIST) CHOLESTEROL,TOTAL 144 100 - 199 mg/dL 07/11/2014 9:15 AM RADIOGRAPHIC TECHNOLOGIST [facility] TRIGLYCERIDES 63 <150 mg/dL 07/11/2014 9:15 AM RADIOGRAPHIC TECHNOLOGIST [facility] HDL CHOLESTEROL 51 >40 mg/dL 4 9:15 AM RADIOGRAPHIC TECHNOLOGIST [facility] NON-HDL CHOLESTEROL 93 <145 mg/dl 07/11/2014 9:15 AM RADIOGRAPHIC TECHNOLOGIST [facility] CHOL/HDL RATIO 2.82 <4.50 07/11/2014 9:15 AM RADIOGRAPHIC TECHNOLOGIST [facility] LDL CHOLESTEROL 80 <=130 mg/dL 07/11/2014 9:15 AM RADIOGRAPHIC TECHNOLOGIST [facility] PATIENT STATUS FASTING 07/11/2014 9:15 AM RADIOGRAPHIC TECHNOLOGIST [facility] Blood specimen (specimen) BLOOD SPECIMEN / Unknown Venipuncture / Unknown 07/11/2014 8:45 AM RADIOGRAPHIC TECHNOLOGIST 07/11/2014 8:46 AM RADIOGRAPHIC TECHNOLOGIST Quincy Mcfarlane MD CHEMISTRY Final Result Performing Organization Address City/State/[facility] Co de Phone Number [facility] [address] [place] [address], from Last 3 Months or Most Recently Relevant to Health Maintenance [place] [place] [address]
--- OUTSIDE RECORDS SUMMARY | 2024-08-04 08:42 | XMS_ITS | Clinical Summary ---
Author Organization [facility] Address [address] [facility] [place] [address] Care Team Providers Care Radius Corner Machine Operator Name Role Phone Guanaco Herndon MD Primary Care Provider [phone] Allergies Active Allergy Reactions Criticality Noted Date Comments Amoxicillin Rash Medium 10/18/2018 Ciprofloxacin Rash Medium 10/18/2018 Penicillins Rash Medium 10/11/2018 Medications tamsulosin (AKA: FLOMAX) 0.4 mg oral Capsule Take 0.4 mg by mouth daily at bedtime. Active tadalafil (AKA: CIALIS) 5 mg oral Tablet Take 5 mg by mouth as directed. Active HYDROcodone 5mg-acetaminophe n 325 mg (AKA: NORCO) 5-325 mg oral TabletIndication s:Incisional hernia, without obstruction or gangrene Take 1-2 tablets by mouth every 4 hours as needed for moderate pain or severe pain. Take 1 to 2 tablets by mouth every 4 hours as needed for pain. 12 tablet 9 Active docusate sodium (AKA: COLACE) 100 mg oral CapsuleIndicatio ns:Incisional hernia, without obstruction or gangrene Take 1 capsule (100 mg) by mouth twice daily. 20 capsule 9 Active Social History Tobacco Use Types Packs/Day Years Used Date Smoking Tobacco: Never Smokeless Tobacco: Never Alcohol Use Standard Drinks/Week Comments Yes 4 (1 standard drink = 0.6 oz pur e alcohol) Sex and Gender Information Value Date Recorded Sex Assigned at Not on file Legal Sex Male 9:15 AM CDT Gender Identity Not on file Sexual Orientation Not on file Last Filed Vital Signs Vital Sign Reading Time Taken Comments Blood Pressure 113/69 10/19/2018 10:00 AM CDT Pulse 51 10/19/2018 10:00 AM CDT Temperature 36.3 C (97.4 F) 10/19/2018 9:34 AM CDT Respiratory Rate 16 10/19/2018 9:34 AM CDT Oxygen Saturation 98% 10/19/2018 10:00 AM CDT Inhaled Oxygen Concentration - - Weight 93.1 kg (205 lb 4 oz) 10/18/2018 8:23 AM CDT Height 188.6 cm (6' 2.25) 10/18/2018 8:23 AM CD T Body Mass Index 26.18 10/18/2018 8:23 AM CDT Plan of Treatment Not on file Medical Devices Implanted Type Area Assistant Therapy Aide Device Identifier Shelf Expiration Date Model / Serial / Lot Patch Ventralex St 4.3cm [place] [id number] - [id number] Implanted:Qty: 1 on 10/19/2018 by Festus Martinez MD at [facility] Mesh N/A: Abdomen Bard 06/30/2020 [id number] / [id number] / [id number] Insurance [facility] [employer] Advance Directives * Full Code (Latest Code Status on File) Date Activated Date Inactivated Comments 10/19/2018 6:52 AM 10/19/2018 1:36 PM Care Teams Radius Corner Machine Operator Relationship Specialty [place] [address] [place] [address] PCP - General Family Medicine 10/11/18 Additional Source Comments PLEASE NOTE: Replies to this message will not be received.[facility] and [facility]
--- OUTSIDE RECORDS SUMMARY | 2024-08-04 08:42 | XMS_ITS | Referral Summary ---
Author Organization [facility] Address [address] [place] [address] Care Team Providers Care Crate Tier Name Role Phone Kota Whitley MD Primary Care Provider [phone] Encounters Date Type Department Care Team Description 07/05/2024 Travel 07/05/2024 8:30 AM IT PORTFOLIO MANAGER Office Visit [place] [address] [address] [place] [phone] Kota Whitley MD Preoperative examination (Primary Dx) from Last 3 Months Allergies Active Allergy Reactions Criticality Noted Date [...] medial compartment OA per XR 12/19/2015 04/05/2019 Immunizations Name Administration Dates Next Due Influenza recombinant (FluBl ok Quadrivalent PF) 10/14/2018,07/04/2014,04/29/2010 Influenza split virus (Fluzo ne Quadrivalent PF) 07/10/2021,07/04/2014 Influenza split virus (Fluzo ne Trivalent PF) 04/29/2010 Influenza split virus quadrivalent 06/29/2012 Influenza split virus trivalent 04/26/2009 SPIKEVAX (Moderna) 12+ Yrs M onovalent COVID Vaccine (shared services representative) 07/10/2021,12/10/2020,11/12/2020 Tdap 10/15/2023(Deferred: Out of Stock - ),10/20/2010,07/22/2007 Social History Tobacco Use Types Packs/Day Years [...] Comments Blood Pressure 124/80 07/05/2024 8:24 AM IT PORTFOLIO MANAGER Pulse 59 07/05/2024 8:24 AM IT PORTFOLIO MANAGER Temperature 36.5 C (97.7 F) 07/05/2024 8:24 AM IT PORTFOLIO MANAGER Respiratory Rate 16 07/05/2024 8:24 AM IT PORTFOLIO MANAGER Oxygen Saturation 97% 07/05/2024 8:24 AM IT PORTFOLIO MANAGER Inhaled Oxygen Concentration - - Weight 96.6 kg (213 lb) 07/05/2024 8:24 AM IT PORTFOLIO MANAGER Height 185.4 cm (6' 1) 07/05/2024 8:24 AM IT PORTFOLIO MANAGER Body Mass Index 28.1 07/05/2024 8:24 AM IT PORTFOLIO MANAGER Plan of Treatment Not on file Procedures Procedure Name Priority Date/Time Associated Diagnosis Comments CBC (HGB,HCT,WBC,RBC,P LATELET) OP Routine 07/05/2024 9:02 AM IT PORTFOLIO MANAGER Preoperative examination BASIC METAB PROFILE OP Routine 07/05/2024 9:02 AM IT PORTFOLIO MANAGER Preoperative examination HCV ANTIBODY ([facility]) Routine 10/15/2023 8:50 AM CDT Need for hepatitis C screening test LIPID PROFILE CASCADE OP Routine 10/15/2023 8:50 AM CDT Screening for hyperlipidemia from Last 3 Months or Most Recently Relevant to Health Maintenance Results * BASIC METAB PROFILE OP (07/05/2024 9:02 AM IT PORTFOLIO MANAGER) SODIUM OP 138 136 - 145 mmol/L 07/05/2024 9:43 AM [facility] POTASSIUM OP 4.5 3.5 - 5.1 mmol/L 07/05/2024 9:43 AM IT PORTFOLIO MANAGER [facility] CHLORIDE OP 103 98 - 107 mmol/L 07/05/2024 9:43 AM [facility] CARBON DIOXIDE OP 27 21 - 32 mmol/L 07/05/2024 9:43 AM [facility] BUN (UREA NITRO) OP 18 7 - 18 mg/dL 07/05/2024 9:43 AM [facility] CREATININE OP 1.03 0.80 - 1.30 mg/dL 07/05/2024 9:43 AM [facility] EST GFR (CKD-EPI) OP >60 >60 mL/min/1.7 3m2 07/05/2024 9:43 AM [facility] Comment:Calculation based on the Chronic Kidney Disease Epidemiology Collaboration (CKD-EPI) equation refit without adjustment for race. GLUCOSE OP 98 70 - 110 mg/dL 07/05/2024 9:43 AM [facility] CALCIUM, SERUM OP 8.7 8.5 - 10.1 mg/dL 07/05/2024 9:43 AM [facility] ANION GAP OP 8.0 0.0 - 15.0 mmol/L 07/05/2024 9:43 AM [facility] Blood Venipuncture / Unknown 07/05/2024 9:02 AM IT PORTFOLIO MANAGER 07/05/2024 9:02 AM IT PORTFOLIO MANAGER us Kota Whitley MD CHEMISTRY ORDERABLE Final Resul t [facility] [id number] [facility] [address] [place] [address], * CBC (HGB,HCT,WBC,RBC,PLATELET) OP (07/05/2024 9:02 AM IT PORTFOLIO MANAGER) WBC OP 5.2 4.3 - 10.8 K/UL 07/05/2024 9:37 AM [facility] RBC OP 5.40 4.60 - 6.20 M/UL 07/05/2024 9:37 AM [facility] HEMOGLOBIN OP 16.1 14.0 - 18.0 gm/dL 07/05/2024 9:37 AM [facility] HEMATOCRIT OP 46.0 40.0 - 54.0 % 07/05/2024 9:37 AM [facility] MCV OP 85 80 - 100 fL 07/05/2024 9:37 AM [facility] MCH OP 29.8 27.0 - 33.0 pg 07/05/2024 9:37 AM [facility] MCHC OP 35.0 33.0 - 36.0 gm/dL 07/05/2024 9:37 AM [facility] RDW OP 11.9 11.5 - 14.5 % 07/05/2024 9:37 AM IT PORTFOLIO MANAGER [facility] PLATELET COUNT OP 179 150 - 400 K/UL 07/05/2024 9:37 AM [facility] MPV OP 10.4 6.5 - 12.0 fL 07/05/2024 9:37 AM [facility] Blood Venipuncture / Unknown 07/05/2024 9:02 AM IT PORTFOLIO MANAGER 07/05/2024 9:02 AM IT PORTFOLIO MANAGER Kota Whitley MD HEMATOLOGY ORDERABLE Final Resu lt [facility] [address] [facility] [address] [place] [address], * HCV ANTIBODY ([facility]) (10/15/2023 8:50 AM [...] - 10/17/2023 5:10 AM CDT Performed at: [facility] [id number] Cyber Policy And Strategy Planner: Nicolas Tafoya MD, Phone: [phone] us Kota Whitley MD [facility] ORDERABLES Final Result [facility] [address] [place] [address] * LIPID PROFILE CASCADE OP (10/15/2023 8:50 AM CDT) Pathologist [facility] Cholesterol OP 137 <200 mg/dL 10/15/2023 9:29 AM CDT [facility] Triglycerides OP 36 <150 mg/dL 10/15/19 9:29 AM CDT [facility] LDL Cholesterol, Calc OP 70 <100 mg/dL 10/15/2023 9:29 AM CDT [facility] HDL Cholesterol OP 60 >40 mg/dL 2023 9:29 AM CDT [facility] Cholesterol/HDL Ratio OP 2.3 0.0 - 4.9 10/15/2023 9:29 AM CDT [facility] Specimen Type 10/15/2023 9:29 AM CDT [facility] Blood Venipuncture / Unknown 10/15/2023 8:50 AM CDT 10/15/2023 8:50 AM CDT Narrative [facility] - 10/15/2023 9:29 AM CDT LDL CHOLESTEROL REFERENCE RANGES: (FOR PATIENTS W/O HEART DISEASE) <100 mg/dL = Optimal 100-129 mg/dL = Near/Above Optimal 130-159 mg/dL = Borderline High 160-189 mg/dL = High >/= 190 mg/dL = Very High Kota Whitley MD CHEMISTRY ORDERABLE Final Resul t [facility] [address] [place] [address], from Last 3 Months or Most Recently Relevant to Health Maintenance Insurance [facility] Care Teams Crate Tier Relationship Specialty [place] [address] [place] [address] PCP - General Internal Medicine 10/15/23
--- OUTSIDE RECORDS SUMMARY | 2024-08-04 08:42 | XMS_ITS | Referral Summary ---
Author Organization [facility] Address [address] [facility] [place] [address] Care Team Providers Care Criminal Justice Professor Name Role Phone Guanaco Herndon MD Primary Care Provider Allergies Active Allergy Reactions Criticality Noted Date [...] Mass Index 26.18 10/18/2018 8:23 AM CDT Functional Status * Are you deaf or do you have serious difficulty hearing? Answer Date of Assessment Author No 10/11/2018 1:09 PM CDT Catalina Tate RN * Are you blind or do you have serious difficulty seeing, even when wearing glasses? Answer Date of Assessment Author No 10/19/2018 6:52 AM CDT Tony Fermin RN Mental Status * Do you have trouble concentrating, remembering, or making decisions because of a physical, mental, or emotional condition? Answer Entry Date Author No 10/19/2018 6:52 AM CDT Tony Fermin RN Plan of Treatment Not on file Medical Devices Implanted Type Area Private Branch Exchange Repairer Device Identifier Shelf Expiration Date Model / Serial / Lot Patch Ventralex St 4.3cm [place] [id number] - [id number] Implanted:Qty: 1 on 10/19/2018 by Festus Martinez MD at [facility] Mesh N/A: Abdomen Bard 06/30/2020 [id number] / [id number] / [id number] Insurance [facility] Advance Directives * Full Code (Latest Code Status on File) Date Activated Date Inactivated Comments 10/19/2018 6:52 AM 10/19/2018 1:36 PM Care Teams Criminal Justice Professor Relationship Specialty [place] [address] [place] [address] PCP - General Family Medicine 10/11/18 Additional Source Comments PLEASE NOTE: Replies to this message will not be received.[facility] and [facility]
--- OUTSIDE RECORDS SUMMARY | 2024-08-04 08:42 | XMS_ITS | Encounter Summary ---
Author Organization [facility] Address [address] [place] [address] Care Team Providers Care Artist'S Model Name Role Phone Kota Whitley MD Primary Care Provider [phone] Reason for Visit * Reason Comments Pre Op exam Encounter Details Date Type Department Care Team (Late st Contact Info) Description 07/05/2024 8:30 AM MEDIATION COMMISSIONER Office Visit [facility] [id number] [place] [address] [place] [phone] [place] [address] [facility] [address] [place] [address] Preoperative examination (Primary Dx) Social History Tobacco Use Types Packs/Day Years [...] Orientation Straight 11/01/2020 8: 11 PM CDT documented as of this encounter Last Filed Vital Signs Vital Sign Reading Time Taken Comments Blood Pressure 124/80 07/05/2024 8:24 AM MEDIATION COMMISSIONER Pulse 59 07/05/2024 8:24 AM MEDIATION COMMISSIONER Temperature 36.5 C (97.7 F) 07/05/2024 8:24 AM MEDIATION COMMISSIONER Respiratory Rate 16 07/05/2024 8:24 AM MEDIATION COMMISSIONER Oxygen Saturation 97% 07/05/2024 8:24 AM MEDIATION COMMISSIONER Inhaled Oxygen Concentration - - Weight 96.6 kg (213 lb) 07/05/2024 8:24 AM MEDIATION COMMISSIONER Height 185.4 cm (6' 1) 07/05/2024 8:24 AM MEDIATION COMMISSIONER Body Mass Index 28.1 07/05/2024 8:24 AM MEDIATION COMMISSIONER documented in this encounter Patient Instructions * Patient Instructions* Kota Whitley MD - 07/05/2024 8:30 AM MEDIATION COMMISSIONER Hold Tadalafil the AM of surgery Hold advil a week before-tylenol okay ATION COMMISSIONER documented in this encounter H&P Notes * Kota Whitley MD - 07/05/2024 8:30 AM CST Preoperative History and Physical Examination Date of Exam: 07/05/2024 Proposed Surgery: left hip replacement Surgeon: Dr. Manuel Date of Surgery: 07/18/24 Location of Surgery: [facility] Fax number: [phone] [place] is an 49 y.o. male who presents for a preoperative clearance history and physical exam at the request of the above mentioned surgeon for the surgery indicated. Copy of this evaluation and/or correspondence will be faxed to the above hospital/surgery center and/or surgeon's office. INDICATION FOR SURGERY: Left hip replacement secondary to osteoarthritis of the left hip HPI: Presents today for preop evaluation prior to left hip replacement. This is scheduled for July 18, 2024. He really has no chronic medical problems other than taking tadalafil for BPH. He had a colonoscopy in November and no issues with the anesthesia related to that. He also had no problems with general anesthesia for an appendectomy in 2018. Currently did have a post spinal headache following a epidural anesthesia for a ankle issue. He denies any problems with wound healing. He denies anyproblems with easy bruising or bleeding. He is taking Advil nightly for his left hip. He is very limited by his left hip and actually his right hip is bothersome as well. He is looking forward to having surgery done on this 1 and then likely the right 1 in the near future. He denies any problems shortness of breath, chest pain or palpitation. Denies any heartburn or abdominal pain. He denies any bowel or bladder issues. He denies any headaches or dizziness. He denies any neck pain. He is a non-smoker. CURRENT COMORBIDITIES: None USE OF ANTITHROMBOTIC: None Current Outpatient Medications: Medication Sig sildenafiL (VIAGRA) 100 mg oral tablet Viagra 100 mg tablet Take 1 tablet as needed by oral route. Tadalafil 5 mg Oral Tab Take 1 Tab by mouth Once Daily. traZODone (DESYREL) 100 mg oral tablet Take 1 tablet (100 mg) by mouth at bedtime as needed for sleep. Allergies Allergen Reactions Ciprofloxacin Rash Penicillins Rash Amoxicillin Rash Azithromycin Past Medical History: Diagnosis Date Acute meniscal tear of right knee 03/24/2016 BPH (benign prostatic hyperplasia) Past Surgical History: Procedure Laterality Date COLONOSCOPY 11/04/2023 No polyps-recheck in 10 years HX ANKLE SURGERY Left HX KNEE ARTHROSCOPY Right LAP,APPENDECTOMY 04/01/2016 with open UHR, primary repair ORTHOPEDICS REPAIR UMBILICAL HERNIA, AGE 5 YEARS OR OLDER; REDUCIBLE 10/19/2018 Family History Problem Relation Name Age of Onset Ovarian Cancer Mother at 50 No Known Problems Brother No Known Problems Paternal Grandmother No Known Problems Paternal Grandfather Social History Tobacco Use Smoking status: Never Passive exposure: Never Smokeless tobacco: Never Substance Use Topics Alcohol use: Yes Drug use: No History of Anesthetic Reaction (personal or family)? no Recent steroid use (last 6 months)? no Immunizations up to date? yes Immunization History Administered Date(s) Administered Influenza recombinant (FluBlok Quadrivalent PF) 04/29/2010, 07/04/2014, 10/14/2018 Influenza split virus (Fluzone Quadrivalent PF) 07/04/2014, 07/10/2021 Influenza split virus (Fluzone Trivalent PF) 04/29/2010 Influenza split virus quadrivalent 06/29/2012 Influenza split virus trivalent 04/26/2009 SPIKEVAX (Moderna) 12+ Yrs Monovalent COVID Vaccine (dredge boat engineer) 11/12/2020, 12/10/2020, 07/10/2021 Tdap 07/22/2007, 10/20/2010 REVIEW OF SYSTEMS: see HPI; otherwise denies HEENT, NECK, RESP, CARDIAC, GI, , NEURO or PSYCH Sx REVISED CARDIAC RISK INDEX: History of Ischemic Heart Disease: no History of Congestive Heart Failure: no History of Cerebrovascular Disease (stroke/TIA): no History of Diabetes requiring preoperative insulin use: no Chronic Kidney Disease (Cr > 2): no Undergoing suprainguinal vascular, intraperitoneal, or intrathoracic surgery: no Risk for cardiac , non-fatal MA, and non-fatal cardiac arrest: 0 predictors - 0.4% PHYSICAL EXAM: BP 124/80 (BP Cuff Site: Right arm, BP Cuff Position: Sitting, BP Cuff Size: Large Adult) Pulse (!) 59 Temp 97.7 ??F (36.5 ??C) (Tympanic) Resp 16 Ht 6' 1 (1.854 m) Wt 96.6 kg (213 lb) SpO2 97% BMI 28.10 kg/m?? LMP: No LMP for male patient. General - Alert & oriented, pleasant and comfortable. Neck - Normal appearing, no cervical adenopathy or carotid bruits noted. Lungs - Clear to auscultation bilaterally, no wheezes, rales or rhonchi. CV - Regular rate and rhythm, no murmurs, rubs or gallops. Abdomen - Non-tender, non-distended, positive bowel sounds, no masses, no hepatosplenomegaly. No rebound or guarding. Extremities - No edema or deformities. Palpable pulses strong bilaterally. Skin - warm, dry, intact. No rashes or erythema. Neurologic - Cranial nerves 2-12 intact Psych - Judgment and mental status are clear, patient has reasonable insight. Mood is stable. LABS/IMAGING: No results found for this or any previous visit (from the past 24 hours). Labs not resulted here are pending and will be faxed BMP and CBC EKG: Not indicated CXR: Not indicated Spirometry: Not indicated ASSESSMENT/PLAN: Sg was seen today for pre op exam. Diagnoses and all orders for this visit: Preoperative examination 1. Preoperative examination (Primary) Patient is very low risk having a low risk procedure. He has no chronic medical issues. He was advised to hold his tadalafil the a.m. of surgery. He was also told to not take Advil for a week before and to use Tylenol instead. Will going do routine blood work today including a BMP and a CBC. He hasno underlying cardiac history and does not need an EKG done. Patient is cleared for surgery. RECOMMENDATIONS: Preoperative Risk Assesment: - Based on the inherent risks of procedure, anesthesia, and the patient's comorbid medical conditions, the patient is stratified as a low risk candidate for the planned procedure. - Further tests are not advised to further risk stratify [place] prior to surgery. Patient was advised to D/c all NSAID's, fish oil, and ASA derivatives one week prior to surgery, and that these may be resumed postoperatively unless instructed otherwise. Patient does not require perioperative bridging of anticoagulation. Other diagnoses as noted in the Assessment and Plan are stable at the present time unless otherwisestated. Additional recommendations: none-BMP and CBC ordered preop Advised to bring Advanced Directive on day of surgery if one is available. Patient had the opportunity to have all his questions answered at today's visit. Kota Whitley MD Total time spent today for visit was 30 minutes and included: Direct [id number] time, Review of records, Coordination of care, and Documentation of visit. ATION COMMISSIONER documented in this encounter Plan of Treatment Not on file documented as of this encounter Procedures Procedure Name Priority Date/Time Associated Diagnosis Comments BASIC METAB PROFILE OP Routine 07/05/2024 9:02 AM MEDIATION COMMISSIONER Preoperative examination CBC (HGB,HCT,WBC,RBC,PL ATELET) OP Routine 07/05/2024 9:02 AM MEDIATION COMMISSIONER Preoperative examination documented in this encounter Results * CBC (HGB,HCT,WBC,RBC,PLATELET) OP (07/05/2024 9:02 AM MEDIATION COMMISSIONER) WBC OP 5.2 4.3 - 10.8 K/UL 07/05/2024 9:37 AM MEDIATION COMMISSIONER [facility] RBC OP 5.40 4.60 - 6.20 M/UL 07/05/2024 9:37 AM MEDIATION COMMISSIONER [facility] HEMOGLOBIN OP 16.1 14.0 - 18.0 gm/dL 07/05/2024 9:37 AM [facility] HEMATOCRIT OP 46.0 40.0 - 54.0 % 07/05/2024 9:37 AM [facility] MCV OP 85 80 - 100 fL 07/05/2024 9:37 AM [facility] MCH OP 29.8 27.0 - 33.0 pg 07/05/2024 9:37 AM [facility] MCHC OP 35.0 33.0 - 36.0 gm/dL 07/05/2024 9:37 AM [facility] RDW OP 11.9 11.5 - 14.5 % 07/05/2024 9:37 AM [facility] PLATELET COUNT OP 179 150 - 400 K/UL 07/05/2024 9:37 AM [facility] MPV OP 10.4 6.5 - 12.0 fL 07/05/2024 9:37 AM [facility] Blood Venipuncture / Unknown 07/05/2024 9:02 AM MEDIATION COMMISSIONER 07/05/2024 9:02 AM MEDIATION COMMISSIONER us Kota Whitley MD HEMATOLOGY ORDERABLE Final Resu lt [facility] [address] [facility] [address] [place] [address], * BASIC METAB PROFILE OP (07/05/2024 9:02 AM MEDIATION COMMISSIONER) SODIUM OP 138 136 - 145 mmol/L 07/05/2024 9:43 AM [facility] POTASSIUM OP 4.5 3.5 - 5.1 mmol/L 07/05/2024 9:43 AM [facility] CHLORIDE OP 103 98 - 107 mmol/L 07/05/2024 9:43 AM [facility] CARBON DIOXIDE OP 27 21 - 32 mmol/L 07/05/2024 9:43 AM [facility] BUN (UREA NITRO) OP 18 7 - 18 mg/dL 07/05/2024 9:43 AM [facility] CREATININE OP 1.03 0.80 - 1.30 mg/dL 07/05/2024 9:43 AM [facility] EST GFR (CKD-EPI) OP >60 >60 mL/min/1.7 3m2 07/05/2024 9:43 AM [facility] Comment:Calculation based on the Chronic Kidney Disease Epidemiology Collaboration (CKD-EPI) equation refit without adjustment for race. GLUCOSE OP 98 70 - 110 mg/dL 07/05/2024 9:43 AM [facility] CALCIUM, SERUM OP 8.7 8.5 - 10.1 mg/dL 07/05/2024 9:43 AM [facility] ANION GAP OP 8.0 0.0 - 15.0 mmol/L 07/05/2024 9:43 AM [facility] Blood Venipuncture / Unknown 07/05/2024 9:02 AM MEDIATION COMMISSIONER 07/05/2024 9:02 AM [facility] us Kota Whitley MD CHEMISTRY ORDERABLE Final Resul t [facility] [address] [facility] [address] [place] [address], documented in this encounter Visit Diagnoses Diagnosis Preoperative examination- Primary Preoperative examination, unspecified documented in this encounter Care Teams Artist'S Model Relationship Specialty [place] [address] [address] PCP - General Internal Medicine 10/15/23 documented as of this encounter
--- OUTSIDE RECORDS SUMMARY | 2024-08-04 08:42 | XMS_ITS | Encounter Summary ---
Author Organization [facility] Address [address] [place] [address] Care Team Providers Care Auto Painter Helper Name Role Phone Kota Whitley MD Primary Care Provider Encounter Details Date Type Department Care Team (Latest Contact Info) Description 07/05/2024 Travel Social History Tobacco Use Types Packs/Day Years Used Date Smoking Tobacco: Never Passive Smoke Exposure: Never Smokeless Tobacco: Never Alcohol Use Standard Drinks/Week Comments Yes 0 [...] PM CDT documented as of this encounter Plan of Treatment Not on file documented as of this encounter Visit Diagnoses Not on filedocumented in this encounter Care Teams Auto Painter Helper Relationship Specialty [place] [address] [place] [address] PCP - General Internal Medicine 10/15/23 documented as of this encounter
== END 2025-01-06 23:59 | disposition home or self-care (01) ==
PROVIDERS: PCP Orthopaedic Surgery Sports Medicine; Visit Provider Orthopaedic Surgery Sports Medicine
DX: M16.12 Unilateral primary osteoarthritis, left hip (principal); Z96.642 Presence of left artificial hip joint; Z51.89 Encounter for other specified aftercare
CPT/HCPCS: 97110; 97140; 97161; 97164